=== PATIENT | female | born 1955 | race Caucasian/White ===

== ENCOUNTER 2021-05-29 07:08 | Outpatient (CLI) | payer MEDICARE, OTHER ==
--- NOTE | 2021-05-29 12:32 | CT Report ---
PROCEDURE: Low Dose Lung Cancer Screen INDICATIONS: HISTORY OF SMOKING TECHNIQUE: Noncontrast low-dose images were acquired from the pulmonary apices to the posterior costophrenic ang les. Multiplanar MIP reformats were then acquired. For radiation dose reduction, the following was used: automated exposure control, adjustment of mA and/or kV according to patient size. COMPARISON: None. FINDINGS: Image quality: Excellent. Lungs and pleura: 2 mm calcified granuloma is seen in anterior right upper lobe series 4 image 68. 2 mm solid nodule is seen in the anterolateral aspect of right upper lobe series 4 image 78. 3 mm solid nodule is seen in anterior right upper lobe series 4 image 96. 3 mm solid nodule is also n oted in lateral periphery of right upper lobe series 4 image 114. 2 mm calcified granuloma is noted in the anterior aspect of left upper lobe series 4 image 117. 6 mm solid nodule is noted in lateral periphery of left lower lobe. Scattered atelectasis in posterior medial aspect of and bilateral lower lobes are seen more prominent on the right side. No pleural effusion or pneumothorax. Central and peripheral airway is patent. Mediastinum: Heart size is normal. No pericardial effusion. No mediastinal adenopathy by size crit eria. Thoracic aorta and central pulmonary arteries are normal in size. Mild atherosclerotic calcifi cations are noted in the coronary vessels and thoracic aorta. Esophagus is normal in caliber. No hia papa hernia. Bones and chest wall: No suspicious bony lesions. No vertebral body compression fractures. No axil fede or supraclavicular adenopathy by size criteria. The thyroid is normal in size and there are no incidental findings. Abdomen: Visualized upper abdomen solid organs and bowel loops appear normal in the absence of contr ast. Postsurgical changes are noted in epigastric region from prior gastric surgery. IMPRESSION: 1. 6 mm solid nodule in lateral periphery of left lower lobe. Additional 2 to 3 mm solid or calcified nodules also seen scattered in bilateral lung joe as above. 2. Mild atherosclerotic disease. Lung RADS category: 3A, probably benign. Six-month low-dose CT chest follow-up is recommended. CLINICAL RECOMMENDATION STATEMENTS: In patients <35 years with an ITN detected on CT, MRI, or extrathyroidal ultrasound, the Committee re commends further evaluation with dedicated thyroid ultrasound if the nodule is ?1 cm and has no suspi cious imaging features, and if the patient has normal life expectancy. In patients ?35 years with an ITN detected on CT, MRI, or extrathyroidal ultrasound, the Committee re commends further evaluation with dedicated thyroid ultrasound if the nodule is ?1.5 cm and has no maki picious imaging features, and if the patient has normal life expectancy. (ACR, 2014) Reviewed by: Domenico Ruelas MD on 05/29/2021 12:31 PM PDT Approved by: Domenico Ruelas MD on 05/29/2021 12:31 PM PDT Station ID: [id number]
== END 2021-05-29 07:09 | disposition home or self-care (01) ==
LOC: DI 07:08
PROVIDERS: ATTEND Nurse Practitioner
DX: Z12.2 Encounter for screening for malignant neoplasm of respiratory organs (principal); R91.8 Other nonspecific abnormal finding of lung field; I25.10 Atherosclerotic heart disease of native coronary artery without angina pectoris; I70.0 Atherosclerosis of aorta; Z87.891 Personal history of nicotine dependence

== ENCOUNTER 2023-09-07 20:46 | Outpatient (CLI) | payer MEDICARE, OTHER | END 2023-09-07 23:59 | disposition EMS.NT | LOC: EMS 20:46 | DX: E11.649 Type 2 diabetes mellitus with hypoglycemia without coma (principal) ==